=== PATIENT | female | born 1995 | race American Indian/Alaskan Native ===

== ENCOUNTER 2017-10-18 22:04 | Inpatient (IN) | payer MEDICAID ==
[2017-10-18] MEDS ORDERED: LACTATED RINGERS 500 ML IV ONE (22:05)
[2017-10-18 23:09] LABS: Bilirubin,Urine NEG (Negative); Blood,Urine SM (Negative); Color,Urine Yellow (Yellow); Mucus,Urine FEW /HPF; Nitrite,Urine NEG (Negative); Protein,Urine <15 mg/dL mg/dL (Negative); Urobilinogen,Urine < 2.0 mg/dL (<2.0)
[2017-10-18] MEDS ORDERED: ANCEF/STERILE WATER 2 GM/20 ML 2 GM/20 ML SYRINGE IV ONE (23:28)
[2017-10-18] MEDS ORDERED: MAGNESIUM SULFATE 40GM/1000ML 40 GM/1,000 ML BAG IV SCH (23:45)
[2017-10-18] MEDS ORDERED: MAGNESIUM SULFATE 4GM/100ML 4 GM/100 ML BAG IV ONE (23:56)
[2017-10-19] MEDS ORDERED: CELESTONE SOLUSPAN IM ONE (00:04)
[2017-10-19] MEDS: CELESTONE SOLUSPAN IM SCH (00:10)
[2017-10-19] MEDS ORDERED: PITOCin/NS 20 UNIT/1000ML DRIP 20,000 MILLIUNITS/1,000 ML BAG IV ONE (00:32)
[2017-10-19 00:40] LABS: Hematocrit 34.7 % (30.3-42.9); Hemoglobin 11.7 gm/dl (10.1-14.3); Mean Corpuscular HGB Conc 34 % (30-34); Mean Corpuscular Hemoglobin 30 pg (28-32); Mean Corpuscular Volume 88 fl (79-97); Platelet Count 283 K/mm3 (140-440); Red Blood Count 3.96 M/mm3 (3.65-5.03)
[2017-10-19] MEDS ORDERED: PITOCin/NS 20 UNIT/1000ML DRIP 20 UNITS/1,000 ML BAG IV SCH (01:00)
[2017-10-19 01:03] LABS: Hepatitis C Virus Antibody Non-Reactive (NonReactive)
--- NOTE | 2017-10-19 01:04 | History and Physical Report ---
History of Present Illness Date of examination: 10/19/17 Date of admission: 10/18/17 23:54 Chief complaint: contractions History of present illness: 22y/o @ 32+3 weeks presents with pelvic pain and contractions. She stated that she was experiencing pelvic pressure. Labs revealed evidence of a urinary tract infection. The patient receives care @ [facility] (Formerly [facility]). Prenatals are not available for review. The patient was evaluated in triage and found to have a cervical exam of 4cm. GBS is unknown Past History Past Medical History: no pertinent history Past Surgical History: no surgical history Social history: single - Obstetrical History Expected Date of Delivery: 12/12/17 Actual Gestation: 32 Week(s) 2 Day(s) : 1 Para: 0 Hx # Term Pregnancies: 0 Number of Pregnancies: 0 Spontaneous Abortions: 0 Induced : 0 Number of Living Children: 0 Medications and Allergies Allergies Allergy/AdvReac Type Severity Reaction Status Date / Time clindamycin Allergy Rash Verified 12/23/14 01:55 Home Medications Medication Instructions Recorded Confirmed Last Taken Type Ibuprofen [Motrin] 600 mg PO Q8H PRN #30 tablet 12/23/14 Unknown Rx methOCARBAMOL [Robaxin] 500 mg PO BID #10 tab 12/23/14 Unknown Rx traMADol [Ultram] 50 mg PO Q6HR PRN #14 tablet 12/23/14 Unknown Rx Active Meds: Active Medications Betamethasone Acet/Betameth SodPhos (Celestone Soluspan) 12 mg IM Q24H JAKOB Stop: 10/20/17 00:01 Lactated Ringer's (Lactated Ringers) 1,000 mls @ 125 mls/hr IV DIRECT JAKOB Magnesium Sulfate 40 gm/ (Sodium Chloride) 1,080 mls @ 54 mls/hr IV DIRECT JAKOB PRN Reason: 2 GM/HR Oxytocin/Sodium Chloride (Pitocin/Ns 20 Unit/1000ml Drip) 20 units in 1,000 mls @ 0 mls/hr IV DIRECT JAKOB PRN Reason: As Directed Review of Systems All systems: negative Genitourinary: contractions - Vital Signs Vital signs: Vital Signs Temp Pulse Resp BP 98.2 F 105 H 20 149/96 10/18/17 22:24 10/18/17 22:24 10/18/17 22:24 10/18/17 22:24 Temp Pulse Resp BP Pulse Ox 98.2 F 122 H 20 141/95 99 10/18/17 22:24 10/19/17 01:02 10/18/17 22:24 10/18/17 23:24 10/19/17 01:02 - Physical Exam Breasts: Positive: deferred Cardiovascular: Regular rate Lungs: Positive: Clear to auscultation Abdomen: Positive: normal appearance Results Result Diagrams: 10/18/17 23:50 Abnormal lab results 10/18/17 Range/Units 22:10 Ur Specific [place] 1.002 L (1.003-1.030) Urine WBC (Auto) 24.0 H (0.0-6.0) /HPF All other labs normal. Assessment and Plan - Patient Problems (1) labor Current Visit: Yes Status: Acute Plan to address problem: admit to L&D
[2017-10-19] MEDS ORDERED: SUBLIMAZE IV ONE ×2 (01:20→04:50)
--- NOTE | 2017-10-19 01:33 | Ultrasound Report ---
FINAL REPORT EXAM: US OB FOLLOW UP HISTORY: estimated weight TECHNIQUE: A limited OB sonogram was obtained for evaluation of weight. FINDINGS: The head is deep in the pelvis and bulging into the vagina. The estimated sonographic age is 30 weeks 6 days based on criteria. The heart is 143 BPM. The estimated weight is 1850 grams. A survey of organs was not obtained. IMPRESSION: Cephalic presentation with the head of the fetus deep in the cervix and vaginal canal. Estimated sonographic age of 30 weeks 6 days. Estimated weight is 1850 grams heart is 143 BPM.
[2017-10-19] MEDS: LACTATED RINGERS 1,000 ML IV SCH ×2 (01:44→14:57)
[2017-10-19 02:07] LABS: Rubella IgG Antibody Immune (Immune)
[2017-10-19] MEDS ORDERED: STADOL ONE (04:55)
[2017-10-19] MEDS ORDERED: STADOL IV PRN (05:07)
[2017-10-19 05:18] LABS: Amphetamine Screen,Urine PRESUMPTIVE NEGATIVE; Benzodiazepines Screen,Urine PRESUMPTIVE NEGATIVE; Cannabinoid Screen,Urine PRESUMPTIVE NEGATIVE; Cocaine Screen,Urine PRESUMPTIVE NEGATIVE; Methadone Screen,Urine PRESUMPTIVE NEGATIVE; Opiate Screen,Urine PRESUMPTIVE NEGATIVE
[2017-10-19] MEDS: POLYCILLIN/NS 2 GM/100 ML 2 GM/100 ML BAG IV SCH ×4 (05:43→20:28)
[2017-10-19 05:47] LABS: Band Neutrophils # (Manual) 2.5 K/mm3; Basophils % (Manual) 0 % (0.0-1.8); Eosinophils % (Manual) 0 % (0.0-4.3); Total Cells Counted 100
[2017-10-19 05:48] LABS: Anisocytosis 1+; Hypochromasia 1+; Large Platelets Few
[2017-10-19] MEDS: MAGNESIUM SULFATE 40 GM in NACL 0.9% 1000 ML 1,000 ML IV SCH (06:44)
--- NOTE | 2017-10-19 07:03 | Progress Note ---
Assessment and Plan - Patient Problems (1) labor Current Visit: Yes Status: Acute (2) premature rupture of membranes Current Visit: Yes Status: Acute Plan to address problem: expectant management will continue magnesium until 2nd steroid dose is received Subjective - Subjective Date of service: 10/19/17 Principal diagnosis: labor Interval history: 22y/o @ 32+3 weeks in labor. Notified by nursing that the patient had progressed to complete dilation. Prepared patient for a vaginal delivery and upon re-examination, the patient was found to be 4 cm. She was experiencing small amounts of fluid from the vagina. The patient is presumed to be ruptured in vertex presentation. The magnesium was resumed upon realization the patient was not delivering at that moment. The findings were discussed with patient and her mother. Will attempt to administer the 2nd steroid dose. Patient reports: loss of fluid, movement normal, contractions Objective - Vital Signs Vital Signs: Vital Signs - 12hr 10/18/17 10/18/17 10/18/17 22:24 22:25 22:30 Temperature 98.2 F Pulse Rate 105 H 105 H 95 H Respiratory 20 Rate Blood Pressure 149/96 O2 Sat by Pulse 98 98 Oximetry 10/18/17 10/18/17 10/18/17 22:35 22:36 22:40 Temperature Pulse Rate 103 H 100 H 107 H Respiratory Rate Blood Pressure 138/100 142/97 O2 Sat by Pulse 98 98 Oximetry 10/18/17 10/18/17 10/18/17 22:45 22:54 23:18 Temperature Pulse Rate 110 H 96 H 96 H Respiratory Rate Blood Pressure 144/98 145/95 O2 Sat by Pulse 99 Oximetry 10/18/17 10/19/17 10/19/17 23:24 00:04 00:09 Temperature Pulse Rate 91 H 90 98 H Respiratory Rate Blood Pressure 141/95 O2 Sat by Pulse 99 99 Oximetry 10/19/17 10/19/17 10/19/17 00:11 00:14 00:19 Temperature Pulse Rate 100 H 100 H 117 H Respiratory Rate Blood Pressure O2 Sat by Pulse 84 97 99 Oximetry 10/19/17 10/19/17 10/19/17 00:37 00:42 00:47 Temperature Pulse Rate 103 H 101 H 115 H Respiratory Rate Blood Pressure O2 Sat by Pulse 98 98 98 Oximetry 10/19/17 10/19/17 10/19/17 00:52 00:57 01:02 Temperature Pulse Rate 131 H 126 H 122 H Respiratory Rate Blood Pressure O2 Sat by Pulse 99 98 99 Oximetry 10/19/17 10/19/17 10/19/17 01:07 01:12 01:17 Temperature Pulse Rate 128 H 112 H 131 H Respiratory Rate Blood Pressure O2 Sat by Pulse 98 96 97 Oximetry 10/19/17 10/19/17 10/19/17 01:22 01:27 01:32 Temperature Pulse Rate 134 H 121 H 135 H Respiratory Rate Blood Pressure O2 Sat by Pulse 95 98 96 Oximetry 10/19/17 10/19/17 10/19/17 01:37 02:07 02:35 Temperature Pulse Rate 108 H 108 H Respiratory 18 18 Rate Blood Pressure O2 Sat by Pulse 94 97 Oximetry 10/19/17 10/19/17 10/19/17 02:40 02:45 02:50 Temperature Pulse Rate 115 H 107 H 108 H Respiratory Rate Blood Pressure O2 Sat by Pulse 97 96 98 Oximetry 10/19/17 10/19/17 10/19/17 02:55 03:00 05:06 Temperature Pulse Rate 128 H 102 H Respiratory 18 Rate Blood Pressure O2 Sat by Pulse 97 97 Oximetry 10/19/17 10/19/17 10/19/17 05:08 05:13 05:15 Temperature Pulse Rate 87 76 80 Respiratory Rate Blood Pressure O2 Sat by Pulse 94 95 94 Oximetry 10/19/17 10/19/17 10/19/17 05:18 05:21 05:23 Temperature Pulse Rate 90 80 74 Respiratory Rate Blood Pressure O2 Sat by Pulse 95 94 94 Oximetry 10/19/17 10/19/17 10/19/17 05:28 05:30 05:33 Temperature Pulse Rate 93 H 91 H 75 Respiratory Rate Blood Pressure O2 Sat by Pulse 95 94 95 Oximetry 10/19/17 10/19/17 10/19/17 05:38 05:43 05:44 Temperature Pulse Rate 76 87 86 Respiratory Rate Blood Pressure O2 Sat by Pulse 96 95 94 Oximetry 10/19/17 10/19/17 10/19/17 05:46 05:47 05:48 Temperature 98.2 F Pulse Rate 79 79 Respiratory 18 Rate Blood Pressure 141/94 O2 Sat by Pulse 97 Oximetry 10/19/17 10/19/17 10/19/17 05:53 05:58 06:03 Temperature Pulse Rate 78 76 86 Respiratory Rate Blood Pressure O2 Sat by Pulse 97 97 96 Oximetry 10/19/17 10/19/17 10/19/17 06:08 06:13 06:18 Temperature Pulse Rate 78 77 92 H Respiratory Rate Blood Pressure O2 Sat by Pulse 97 97 96 Oximetry 10/19/17 10/19/17 10/19/17 06:23 06:28 06:32 Temperature Pulse Rate 73 74 76 Respiratory Rate Blood Pressure O2 Sat by Pulse 96 95 94 Oximetry 10/19/17 10/19/17 10/19/17 06:33 06:38 06:43 Temperature Pulse Rate 78 79 87 Respiratory Rate Blood Pressure O2 Sat by Pulse 97 95 97 Oximetry 10/19/17 10/19/17 10/19/17 06:48 06:53 06:58 Temperature Pulse Rate 78 91 H 72 Respiratory Rate Blood Pressure O2 Sat by Pulse 96 96 96 Oximetry - Labs Labs: Abnormal Labs 10/18/17 10/18/17 22:10 23:50 WBC 21.1 H RDW 12.0 L Lymphocytes % (Manual) 12.0 L Seg Neutrophils # Man 14.8 H Monocytes # (Manual) 1.3 H Ur Specific [place] 1.002 L Urine WBC (Auto) 24.0 H Laboratory Results - last 24 hr 10/18/17 10/18/17 10/18/17 22:10 23:50 23:50 WBC 21.1 H RBC 3.96 Hgb 11.7 Hct 34.7 MCV 88 MCH 30 MCHC 34 RDW 12.0 L Plt Count 283 Add Manual Diff Complete Total Counted 100 Seg Neuts % (Manual) 70.0 Band Neutrophils % 12.0 Lymphocytes % (Manual) 12.0 L Reactive Lymphs % (Man) 0 Monocytes % (Manual) 6.0 Eosinophils % (Manual) 0 Basophils % (Manual) 0 Metamyelocytes % 0 Myelocytes % 0 Promyelocytes % 0 Blast Cells % 0 Nucleated RBC % Not Reportable Seg Neutrophils # Man 14.8 H Band Neutrophils # 2.5 Lymphocytes # (Manual) 2.5 Abs React Lymphs (Man) 0.0 Monocytes # (Manual) 1.3 H Eosinophils # (Manual) 0.0 Basophils # (Manual) 0.0 Metamyelocytes # 0.0 Myelocytes # 0.0 Promyelocytes # 0.0 Blast Cells # 0.0 WBC Morphology Not Reportable Hypersegmented Neuts Not Reportable Hyposegmented Neuts Not Reportable Hypogranular Neuts Not Reportable Smudge Cells Not Reportable Toxic Granulation Not Reportable Toxic Vacuolation Not Reportable Dohle Bodies Not Reportable Pelger-Huet Anomaly Not Reportable Valentina Rods Not Reportable Platelet Estimate Appears normal Clumped Platelets Not Reportable Plt Clumps, EDTA Not Reportable Large Platelets Few Giant Platelets Not Reportable Platelet Satelliting Not Reportable Plt Morphology Comment Not Reportable RBC Morphology Not Reportable Dimorphic RBCs Not Reportable Polychromasia Not Reportable Hypochromasia 1+ Poikilocytosis Not Reportable Anisocytosis 1+ Microcytosis Not Reportable Macrocytosis Not Reportable Spherocytes Not Reportable Pappenheimer Bodies Not Reportable Sickle Cells Not Reportable Target Cells Not Reportable Tear Drop Cells Not Reportable Ovalocytes Not Reportable Helmet Cells Not Reportable [place] Bodies Not Reportable [place] Rings Not Reportable Roel Cells Not Reportable Bite Cells Not Reportable Crenated Cell Not Reportable Elliptocytes Not Reportable Acanthocytes (Spur) Not Reportable Rouleaux Not Reportable Hemoglobin C Crystals Not Reportable Schistocytes Not Reportable Malaria parasites Not Reportable Vin Bodies Not Reportable Hem Pathologist Commnt No Urine Color Yellow Urine Turbidity Hazy Urine pH 7.0 Ur Specific [place] 1.002 L Urine Protein <15 mg/dl Urine Glucose (UA) Neg Urine Ketones Neg Urine Blood Sm Urine Nitrite Neg Urine Bilirubin Neg Urine Urobilinogen < 2.0 Ur Leukocyte Esterase Lg Urine WBC (Auto) 24.0 H Urine RBC (Auto) 3.0 U Epithel Cells (Auto) 5.0 Urine Mucus Few Urine Opiates Screen Urine Methadone Screen Ur Barbiturates Screen Ur Phencyclidine Scrn Ur Amphetamines Screen U Benzodiazepines Scrn Urine Cocaine Screen U Marijuana (THC) Screen Drugs of Abuse Note Hep Bs Antigen Hepatitis C Antibody Non-reactive HIV 1&2 Antibody Rapid Non react HIV P24 Antigen Non react Rubella IgG Antibody Immune Blood Type Antibody Screen 10/18/17 10/18/17 10/19/17 23:50 23:50 04:50 WBC RBC Hgb Hct MCV MCH MCHC RDW Plt Count Add Manual Diff Total Counted Seg Neuts % (Manual) Band Neutrophils % Lymphocytes % (Manual) Reactive Lymphs % (Man) Monocytes % (Manual) Eosinophils % (Manual) Basophils % (Manual) Metamyelocytes % Myelocytes % Promyelocytes % Blast Cells % Nucleated RBC % Seg Neutrophils # Man Band Neutrophils # Lymphocytes # (Manual) Abs React Lymphs (Man) Monocytes # (Manual) Eosinophils # (Manual) Basophils # (Manual) Metamyelocytes # Myelocytes # Promyelocytes # Blast Cells # WBC Morphology Hypersegmented Neuts Hyposegmented Neuts Hypogranular Neuts Smudge Cells Toxic Granulation Toxic Vacuolation Dohle Bodies Pelger-Huet Anomaly Valentina Rods Platelet Estimate Clumped Platelets Plt Clumps, EDTA Large Platelets Giant Platelets Platelet Satelliting Plt Morphology Comment RBC Morphology Dimorphic RBCs Polychromasia Hypochromasia Poikilocytosis Anisocytosis Microcytosis Macrocytosis Spherocytes Pappenheimer Bodies Sickle Cells Target Cells Tear Drop Cells Ovalocytes Helmet Cells [place] Bodies [place] Rings Roel Cells Bite Cells Crenated Cell Elliptocytes Acanthocytes (Spur) Rouleaux Hemoglobin C Crystals Schistocytes Malaria parasites Vin Bodies Hem Pathologist Commnt Urine Color Urine Turbidity Urine pH Ur Specific [place] Urine Protein Urine Glucose (UA) Urine Ketones Urine Blood Urine Nitrite Urine Bilirubin Urine Urobilinogen Ur Leukocyte Esterase Urine WBC (Auto) Urine RBC (Auto) U Epithel Cells (Auto) Urine Mucus Urine Opiates Screen Presumptive negative Urine Methadone Screen Presumptive negative Ur Barbiturates Screen Presumptive negative Ur Phencyclidine Scrn Presumptive negative Ur Amphetamines Screen Presumptive negative U Benzodiazepines Scrn Presumptive negative Urine Cocaine Screen Presumptive negative U Marijuana (THC) Screen Presumptive negative Drugs of Abuse Note Disclamer Hep Bs Antigen Non-reactive Hepatitis C Antibody HIV 1&2 Antibody Rapid HIV P24 Antigen Rubella IgG Antibody Blood Type A POSITIVE Antibody Screen Negative
--- NOTE | 2017-10-19 11:40 | Consultation ---
History of Present Illness Consult date: 10/19/17 Requesting physician: LAURO ARIAS Reason for consult: prematurity History of present illness: I met with mother and spoke with her nurse on the OB team. Mother is presenting with labor. 1st dose of betamethasone given at 0010 today and currently on [id number]. I explained to mother the need for NICU admission at 32 weeks. We discussed the possible need for respiratory support, umbilical lines if necessary, advancing nutrition towards full oral feeds, temperature regulation and the possible need for antibiotics as well as complications that may occur during NICU stay. I encouraged mother to start pumping breast milk soon after delivery. Mother expressed understanding of all the information provided and I encouraged her to contact the NICU with any further questions. Documentation - Maternal Info Maternal Blood Type: A (+) positive HbsAg: Negative HIV: Negative Group Beta Strep: Unknown Rubella: Immune - information: Height 5 ft Medications and Allergies Allergies Allergy/AdvReac Type Severity Reaction Status Date / Time clindamycin Allergy Rash Verified 12/23/14 01:55 Home Medications Medication Instructions Recorded Confirmed Last Taken Type Ibuprofen [Motrin] 600 mg PO Q8H PRN #30 tablet 12/23/14 10/19/17 Unknown Rx methOCARBAMOL [Robaxin] 500 mg PO BID #10 tab 12/23/14 10/19/17 Unknown Rx traMADol [Ultram] 50 mg PO Q6HR PRN #14 tablet 12/23/14 10/19/17 Unknown Rx Acetaminophen [Tylenol Extra 1,000 mg PO PRN 10/19/17 10/19/17 10/17/17 21:00 History Strength] Ferrous Sulfate [Feosol 325 MG tab] 325 mg PO BID 10/19/17 10/19/17 Unknown History 21/Iron Fu/Folic Acid 1 tab PO DAILY 10/19/17 10/19/17 Unknown History [ Complete Caplet] Promethazine [Phenergan TAB] 25 mg PO Q6HR PRN 10/19/17 10/19/17 10/17/17 23:00 History Active Meds: Active Medications Amoxicillin (Trimox) 250 mg PO Q8HR JAKOB PRN Reason: Protocol Stop: 10/26/17 05:59 Betamethasone Acet/Betameth SodPhos (Celestone Soluspan) 12 mg IM Q24H JAKOB Stop: 10/20/17 00:01 Last Admin: 10/19/17 00:10 Dose: 12 mg Butorphanol Tartrate (Stadol) 2 mg IV Q2H PRN PRN Reason: Labor Pain Erythromycin (Abdi-Tab) 250 mg PO Q8HR JAKOB PRN Reason: Protocol Stop: 10/26/17 05:59 Lactated Ringer's (Lactated Ringers) 1,000 mls @ 125 mls/hr IV DIRECT JAKOB Last Admin: 10/19/17 01:44 Dose: 125 mls/hr Magnesium Sulfate 40 gm/ (Sodium Chloride) 1,080 mls @ 54 mls/hr IV DIRECT JAKOB PRN Reason: 2 GM/HR Last Admin: 10/19/17 06:44 Dose: 2 gm/hr, 54 mls/hr Ampicillin Sodium (Polycillin/Ns 2 Gm/100 Ml) 2 gm in 100 mls @ 100 mls/hr IV Q6H JAKOB PRN Reason: Protocol Stop: 10/20/17 21:59 Last Admin: 10/19/17 09:17 Dose: 100 mls/hr Exam Vital Signs Temp Pulse Resp BP 98.2 F 105 H 20 149/96 10/18/17 22:24 10/18/17 22:24 10/18/17 22:24 10/18/17 22:24 Temp Pulse Resp BP Pulse Ox 97.6 F 87 18 147/88 99 10/19/17 09:20 10/19/17 09:28 10/19/17 09:20 10/19/17 09:25 10/19/17 09:28 Results - Laboratory Findings 10/18/17 23:50 Abnormal lab results 10/18/17 10/18/17 Range/Units 22:10 23:50 WBC 21.1 H (4.5-11.0) K/mm3 RDW 12.0 L (13.2-15.2) % Lymphocytes % (Manual) 12.0 L (13.4-35.0) % Seg Neutrophils # Man 14.8 H (1.8-7.7) K/mm3 Monocytes # (Manual) 1.3 H (0.0-0.8) K/mm3 Ur Specific [place] 1.002 L (1.003-1.030) Urine WBC (Auto) 24.0 H (0.0-6.0) /HPF Assessment and Plan Agree with steroids Will attend delivery Call NICU with questions
--- NOTE | 2017-10-19 14:06 | Ultrasound Report ---
ULTRASOUND OB LIMITED History: well being Technique: Transabdominal ultrasound with Doppler interrogation. Gestation: Single Position: Cephalic Amniotic Fluid: Increased SHANNA = 25.2 cm Heart Rate: 120 BPM
--- NOTE | 2017-10-19 14:06 | Ultrasound Report ---
ULTRASOUND BIOPHYSICAL PROFILE: History: well being Technique: Transabdominal ultrasound with Doppler interrogation. 2 - breathing movements 2 - movements 2 - posture and tone 2 - Qualitative amniotic fluid volume 8 - TOTAL SCORE OF POSSIBLE 8 Heart Rate (bpm) 120
[2017-10-19] MEDS ORDERED: DEEP SEA NS PRN (17:19)
[2017-10-19] MEDS ORDERED: ZOFRAN IV PRN (20:13)
[2017-10-19] MEDS ORDERED: ZOFRAN ONE (20:15)
[2017-10-19] MEDS ORDERED: CALCIUM GLUCONATE 2,000 MG in NACL 0.9% 100 ML IV ONE (21:49)
[2017-10-20] MEDS: CELESTONE SOLUSPAN IM SCH (00:32)
[2017-10-20] MEDS: POLYCILLIN/NS 2 GM/100 ML 2 GM/100 ML BAG IV SCH ×4 (05:44→23:28)
[2017-10-20] MEDS: LACTATED RINGERS 1,000 ML IV SCH ×2 (05:45→22:51)
--- NOTE | 2017-10-20 09:46 | Ultrasound Report ---
History: well being. BIOPHYSICAL PROFILE: 0 - breathing movements 2 - movements 2 - posture and tone 2 - Qualitative amniotic fluid volume 8 - TOTAL SCORE OF POSSIBLE 8 Heart Rate (bpm) 137 Gestation: Single Position: Cephalic Amniotic Fluid: SHANNA = 24.6 cm Heart Rate: 134 BPM Cervical length: cm (Normal > 3 cm)
--- NOTE | 2017-10-20 11:24 | Progress Note ---
Assessment and Plan A/P HD#3 32 weeks labor, advanced dilation on mag check mag levels and creatinine s/p [id number] continuous monitoring await [facility] recommendations Subjective - Subjective Date of service: 10/20/17 Principal diagnosis: labor Patient reports: new complaints, loss of fluid, movement normal, contractions (occasional) Objective - Vital Signs Vital Signs: Vital Signs - 12hr 10/20/17 10/20/17 10/20/17 00:01 01:01 02:01 Pulse Rate 104 H 102 H 100 H Blood Pressure 121/78 119/76 124/73 O2 Sat by Pulse Oximetry 10/20/17 10/20/17 10/20/17 03:01 04:02 05:02 Pulse Rate 91 H 92 H 89 Blood Pressure 127/82 128/79 140/88 O2 Sat by Pulse Oximetry 10/20/17 10/20/17 10/20/17 06:01 07:01 08:02 Pulse Rate 81 86 104 H Blood Pressure 126/79 140/79 156/98 O2 Sat by Pulse Oximetry 10/20/17 10/20/17 10/20/17 08:25 09:33 09:38 Pulse Rate 88 79 76 Blood Pressure 121/77 O2 Sat by Pulse 100 99 Oximetry 10/20/17 10/20/17 10/20/17 09:43 09:48 09:53 Pulse Rate 81 75 73 Blood Pressure O2 Sat by Pulse 99 99 99 Oximetry 10/20/17 10/20/17 10/20/17 09:58 11:07 11:08 Pulse Rate 104 H 89 89 Blood Pressure O2 Sat by Pulse 99 94 95 Oximetry 10/20/17 10/20/17 11:13 11:18 Pulse Rate 78 77 Blood Pressure O2 Sat by Pulse 100 100 Oximetry - Exam Breasts: normal Cardiovascular: Regular rate, Normal S1 Abdomen: Present: normal appearance, soft, normal bowel sounds Uterus: Present: normal FHR: category 1 Uterine Contraction Pattern: Irregular Uterine Tone Measurement Phase: Contraction - Labs Labs: Abnormal Labs 10/18/17 10/18/17 10/19/17 22:10 23:50 20:40 WBC 21.1 H RDW 12.0 L Lymphocytes % (Manual) 12.0 L Seg Neutrophils # Man 14.8 H Monocytes # (Manual) 1.3 H Magnesium 10.10 H Ur Specific [place] 1.002 L Urine WBC (Auto) 24.0 H 10/20/17 10/20/17 00:09 10:03 WBC RDW Lymphocytes % (Manual) Seg Neutrophils # Man Monocytes # (Manual) Magnesium 7.40 H 3.80 H Ur Specific [place] Urine WBC (Auto) Laboratory Results - last 24 hr 10/18/17 10/19/17 10/20/17 23:50 20:40 00:09 Creatinine Estimated GFR Magnesium 10.10 H 7.40 H RPR Nonreactive 10/20/17 10/20/17 10:03 10:10 Creatinine 1.0 Estimated GFR > 60 Magnesium 3.80 H RPR
[2017-10-20] MEDS ORDERED: MAGNESIUM SULFATE 4GM/100ML 0 GM/0 ML BAG IV ONE (16:33)
[2017-10-20] MEDS ORDERED: MAGNESIUM SULFATE 40GM/1000ML 40 GM/1,000 ML BAG IV SCH (17:00)
[2017-10-20] MEDS: MAGNESIUM SULFATE 40 GM in NACL 0.9% 1000 ML 1,000 ML IV SCH (18:16)
[2017-10-21] MEDS ORDERED: PROCARDIA*For Tocolysis only PO SCH (05:00)
[2017-10-21] MEDS ORDERED: TRIMOX PO SCH (06:00)
[2017-10-21] MEDS ORDERED: ERY-TAB PO SCH (06:00)
[2017-10-21] MEDS: PROCARDIA*For Tocolysis only PO SCH ×2 (09:32→16:21)
[2017-10-21] MEDS ORDERED: XYLOCAINE 2% INFILTRATI ONE (17:18)
[2017-10-21] MEDS: LACTATED RINGERS 1,000 ML IV SCH ×2 (18:42→21:08)
[2017-10-21] MEDS ORDERED: AMBIEN PO PRN (19:37)
[2017-10-21] MEDS ORDERED: STADOL IV PRN (19:37)
[2017-10-21] MEDS ORDERED: TYLENOL PO PRN ×2 (19:37→21:59)
--- NOTE | 2017-10-21 20:41 | Progress Note ---
Assessment and Plan A/P HD#4 32+ weeks labor, advanced dilation s/p mag for 48hrs MFM consult appreciated creatinine elevated ( 24 hr urine collection ongoing-complete tomorrow) s/p [id number] continuous monitoring on procardia for contractions Subjective - Subjective Date of service: 10/21/17 Principal diagnosis: labor Patient reports: new complaints, movement normal, no loss of fluid, no vaginal bleeding, no contractions (occasional) Objective - Vital Signs Vital Signs: Vital Signs - 12hr 10/21/17 10/21/17 10/21/17 09:39 09:40 09:45 Temperature Pulse Rate 97 H 94 H 99 H Respiratory Rate Blood Pressure Blood Pressure [Left] O2 Sat by Pulse 92 93 92 Oximetry 10/21/17 10/21/17 10/21/17 09:48 09:50 09:55 Temperature Pulse Rate 89 107 H 92 H Respiratory Rate Blood Pressure Blood Pressure [Left] O2 Sat by Pulse 93 93 92 Oximetry 10/21/17 10/21/17 10/21/17 10:00 10:05 10:10 Temperature Pulse Rate 85 83 102 H Respiratory Rate Blood Pressure Blood Pressure [Left] O2 Sat by Pulse 93 93 92 Oximetry 10/21/17 10/21/17 10/21/17 10:15 10:20 10:25 Temperature Pulse Rate 105 H 100 H 98 H Respiratory Rate Blood Pressure Blood Pressure [Left] O2 Sat by Pulse 92 92 93 Oximetry 10/21/17 10/21/17 10/21/17 10:30 10:35 10:40 Temperature Pulse Rate 101 H 99 H 103 H Respiratory Rate Blood Pressure Blood Pressure [Left] O2 Sat by Pulse 91 92 92 Oximetry 10/21/17 10/21/17 10/21/17 10:45 10:50 10:54 Temperature Pulse Rate 94 H 98 H 118 H Respiratory Rate Blood Pressure Blood Pressure [Left] O2 Sat by Pulse 93 92 93 Oximetry 10/21/17 10/21/17 10/21/17 10:55 11:00 11:05 Temperature Pulse Rate 117 H 99 H 100 H Respiratory Rate Blood Pressure Blood Pressure [Left] O2 Sat by Pulse 94 90 90 Oximetry 10/21/17 10/21/17 10/21/17 11:10 11:15 11:19 Temperature Pulse Rate 99 H 109 H Respiratory Rate Blood Pressure Blood Pressure [Left] O2 Sat by Pulse 91 94 92 Oximetry 10/21/17 10/21/17 10/21/17 11:20 11:25 11:26 Temperature Pulse Rate 109 H 103 H 110 H Respiratory Rate Blood Pressure Blood Pressure [Left] O2 Sat by Pulse 93 91 94 Oximetry 10/21/17 10/21/17 10/21/17 11:30 11:32 11:35 Temperature Pulse Rate 105 H 94 H Respiratory 18 Rate Blood Pressure Blood Pressure [Left] O2 Sat by Pulse 92 94 Oximetry 10/21/17 10/21/17 10/21/17 11:36 11:40 11:43 Temperature Pulse Rate 102 H 97 H Respiratory Rate Blood Pressure Blood Pressure [Left] O2 Sat by Pulse 94 92 92 Oximetry 10/21/17 10/21/17 10/21/17 11:45 11:50 11:53 Temperature Pulse Rate 98 H 90 86 Respiratory Rate Blood Pressure Blood Pressure [Left] O2 Sat by Pulse 93 89 93 Oximetry 10/21/17 10/21/17 10/21/17 11:55 12:00 12:05 Temperature Pulse Rate 93 H 88 84 Respiratory Rate Blood Pressure Blood Pressure [Left] O2 Sat by Pulse 92 94 94 Oximetry 10/21/17 10/21/17 10/21/17 12:09 12:10 12:11 Temperature Pulse Rate 104 H 95 H 83 Respiratory Rate Blood Pressure 122/72 Blood Pressure [Left] O2 Sat by Pulse 94 94 Oximetry 10/21/17 10/21/17 10/21/17 12:15 12:16 12:20 Temperature Pulse Rate 82 80 93 H Respiratory Rate Blood Pressure Blood Pressure [Left] O2 Sat by Pulse 94 94 95 Oximetry 10/21/17 10/21/17 10/21/17 12:21 12:25 12:29 Temperature Pulse Rate 79 83 76 Respiratory Rate Blood Pressure Blood Pressure [Left] O2 Sat by Pulse 94 95 94 Oximetry 10/21/17 10/21/17 10/21/17 12:30 12:33 12:35 Temperature 97.8 F Pulse Rate 75 72 78 Respiratory 16 Rate Blood Pressure Blood Pressure 112/63 [Left] O2 Sat by Pulse 94 94 Oximetry 10/21/17 10/21/17 10/21/17 12:40 12:41 12:45 Temperature Pulse Rate 80 77 74 Respiratory Rate Blood Pressure Blood Pressure [Left] O2 Sat by Pulse 95 94 95 Oximetry 10/21/17 10/21/17 10/21/17 12:50 12:52 12:55 Temperature Pulse Rate 83 91 H 76 Respiratory Rate Blood Pressure Blood Pressure [Left] O2 Sat by Pulse 96 94 95 Oximetry 10/21/17 10/21/17 10/21/17 12:58 13:00 13:01 Temperature Pulse Rate 82 69 79 Respiratory Rate Blood Pressure 134/93 Blood Pressure [Left] O2 Sat by Pulse 94 94 Oximetry 10/21/17 10/21/17 10/21/17 13:04 13:05 13:10 Temperature Pulse Rate 86 83 69 Respiratory Rate Blood Pressure Blood Pressure [Left] O2 Sat by Pulse 94 94 94 Oximetry 10/21/17 10/21/17 10/21/17 13:15 13:20 13:24 Temperature Pulse Rate 76 69 Respiratory Rate Blood Pressure Blood Pressure [Left] O2 Sat by Pulse 94 94 94 Oximetry 10/21/17 10/21/17 10/21/17 13:25 13:29 13:30 Temperature Pulse Rate 77 71 78 Respiratory Rate Blood Pressure Blood Pressure [Left] O2 Sat by Pulse 94 94 95 Oximetry 10/21/17 10/21/17 10/21/17 13:35 13:36 13:40 Temperature Pulse Rate 76 72 85 Respiratory Rate Blood Pressure Blood Pressure [Left] O2 Sat by Pulse 96 94 95 Oximetry 10/21/17 10/21/17 10/21/17 13:43 13:45 13:50 Temperature Pulse Rate 80 81 71 Respiratory Rate Blood Pressure Blood Pressure [Left] O2 Sat by Pulse 93 93 96 Oximetry 10/21/17 10/21/17 10/21/17 13:55 14:00 14:02 Temperature Pulse Rate 70 72 83 Respiratory Rate Blood Pressure 144/64 Blood Pressure [Left] O2 Sat by Pulse 96 95 93 Oximetry 10/21/17 10/21/17 10/21/17 14:05 14:07 14:10 Temperature Pulse Rate 82 78 68 Respiratory Rate Blood Pressure Blood Pressure [Left] O2 Sat by Pulse 94 93 95 Oximetry 10/21/17 10/21/17 10/21/17 14:15 14:20 14:25 Temperature Pulse Rate 82 76 68 Respiratory Rate Blood Pressure Blood Pressure [Left] O2 Sat by Pulse 94 99 99 Oximetry 10/21/17 10/21/17 10/21/17 14:30 14:35 14:40 Temperature Pulse Rate 83 76 81 Respiratory Rate Blood Pressure Blood Pressure [Left] O2 Sat by Pulse 99 97 99 Oximetry 10/21/17 10/21/17 10/21/17 14:45 14:50 14:55 Temperature Pulse Rate 80 78 73 Respiratory Rate Blood Pressure Blood Pressure [Left] O2 Sat by Pulse 98 99 100 Oximetry 10/21/17 10/21/17 10/21/17 15:00 15:01 15:05 Temperature Pulse Rate 70 75 84 Respiratory Rate Blood Pressure 125/78 Blood Pressure [Left] O2 Sat by Pulse 97 97 Oximetry 10/21/17 10/21/17 10/21/17 15:10 15:15 15:20 Temperature Pulse Rate 86 87 83 Respiratory Rate Blood Pressure Blood Pressure [Left] O2 Sat by Pulse 98 97 98 Oximetry 10/21/17 10/21/17 10/21/17 15:25 15:30 15:35 Temperature Pulse Rate 89 71 93 H Respiratory Rate Blood Pressure Blood Pressure [Left] O2 Sat by Pulse 98 98 97 Oximetry 10/21/17 10/21/17 10/21/17 15:40 15:45 15:50 Temperature Pulse Rate 71 73 93 H Respiratory Rate Blood Pressure Blood Pressure [Left] O2 Sat by Pulse 97 97 98 Oximetry 10/21/17 10/21/17 10/21/17 15:55 16:00 16:03 Temperature Pulse Rate 96 H 92 H 87 Respiratory Rate Blood Pressure 131/79 Blood Pressure [Left] O2 Sat by Pulse 97 96 Oximetry 10/21/17 10/21/17 10/21/17 16:05 16:10 16:15 Temperature Pulse Rate 89 91 H 78 Respiratory Rate Blood Pressure Blood Pressure [Left] O2 Sat by Pulse 97 97 96 Oximetry 10/21/17 10/21/17 10/21/17 16:20 16:25 16:30 Temperature Pulse Rate 75 89 91 H Respiratory Rate Blood Pressure Blood Pressure [Left] O2 Sat by Pulse 96 97 100 Oximetry 10/21/17 10/21/17 10/21/17 16:35 16:40 16:45 Temperature Pulse Rate 77 90 108 H Respiratory Rate Blood Pressure Blood Pressure [Left] O2 Sat by Pulse 100 99 97 Oximetry 02/18/18 02/18/18 02/18/18 16:50 16:55 17:00 Temperature Pulse Rate 115 H 112 H 115 H Respiratory Rate Blood Pressure Blood Pressure [Left] O2 Sat by Pulse 97 97 97 Oximetry 10/21/17 10/21/17 10/21/17 17:02 17:05 17:10 Temperature Pulse Rate 110 H 107 H 110 H Respiratory Rate Blood Pressure 87/53 Blood Pressure [Left] O2 Sat by Pulse 97 97 Oximetry 10/21/17 10/21/17 10/21/17 17:11 17:15 17:20 Temperature Pulse Rate 110 H 103 H 93 H Respiratory Rate Blood Pressure Blood Pressure [Left] O2 Sat by Pulse 94 94 96 Oximetry 10/21/17 10/21/17 10/21/17 17:25 17:30 17:35 Temperature Pulse Rate 96 H 89 114 H Respiratory Rate Blood Pressure Blood Pressure [Left] O2 Sat by Pulse 96 97 96 Oximetry 10/21/17 10/21/17 10/21/17 17:40 17:43 17:45 Temperature Pulse Rate 94 H 95 H 95 H Respiratory Rate Blood Pressure Blood Pressure [Left] O2 Sat by Pulse 96 94 95 Oximetry 10/21/17 10/21/17 10/21/17 17:50 17:55 17:58 Temperature Pulse Rate 88 89 85 Respiratory Rate Blood Pressure Blood Pressure [Left] O2 Sat by Pulse 95 96 94 Oximetry 10/21/17 10/21/17 10/21/17 18:00 18:01 18:05 Temperature Pulse Rate 87 83 86 Respiratory Rate Blood Pressure 108/64 Blood Pressure [Left] O2 Sat by Pulse 97 96 Oximetry 10/21/17 10/21/17 10/21/17 18:10 18:15 18:20 Temperature 97.4 F L Pulse Rate 79 82 96 H Respiratory 18 Rate Blood Pressure Blood Pressure 110/62 [Left] O2 Sat by Pulse 96 97 97 Oximetry 10/21/17 10/21/17 10/21/17 18:24 18:25 18:30 Temperature Pulse Rate 100 H 98 H 94 H Respiratory Rate Blood Pressure Blood Pressure [Left] O2 Sat by Pulse 93 94 93 Oximetry 10/21/17 10/21/17 10/21/17 18:35 18:40 18:45 Temperature Pulse Rate 85 78 80 Respiratory Rate Blood Pressure Blood Pressure [Left] O2 Sat by Pulse 100 100 99 Oximetry 10/21/17 10/21/1710/21/18 18:50 18:55 19:01 Temperature Pulse Rate 86 80 75 Respiratory Rate Blood Pressure 131/84 Blood Pressure [Left] O2 Sat by Pulse 98 97 Oximetry 10/21/17 19:15 Temperature 97.3 F L Pulse Rate Respiratory 16 Rate Blood Pressure Blood Pressure 131/84 [Left] O2 Sat by Pulse Oximetry - Exam Breasts: deferred Cardiovascular: Regular rate, Normal S1 Lungs: Clear to auscultation, Normal air movement Abdomen: Present: normal appearance, soft, normal bowel sounds. Absent: distention, tenderness, guarding Vulva: both: normal Uterus: Present: normal FHR: category 1 Uterine Contraction Pattern: Irregular Uterine Tone Measurement Phase: Resting Extremities: normal Deep Tendon Reflex Grade: Normal +2 - Labs Labs: Abnormal Labs 10/18/17 10/18/17 10/19/17 22:10 23:50 20:40 WBC 21.1 H RDW 12.0 L Lymphocytes % (Manual) 12.0 L Seg Neutrophils # Man 14.8 H Monocytes # (Manual) 1.3 H Magnesium 10.10 H Ur Specific [place] 1.002 L Urine WBC (Auto) 24.0 H 10/20/17 10/20/17 10/20/17 00:09 10:03 15:52 WBC RDW Lymphocytes % (Manual) Seg Neutrophils # Man Monocytes # (Manual) Magnesium 7.40 H 3.80 H 7.10 H Ur Specific [place] Urine WBC (Auto) 10/20/17 22:39 WBC RDW Lymphocytes % (Manual) Seg Neutrophils # Man Monocytes # (Manual) Magnesium 6.50 H Ur Specific [place] Urine WBC (Auto) Laboratory Results - last 24 hr 10/20/17 10/20/17 22:39 22:39 Creatinine 1.0 Estimated GFR > 60 Magnesium 6.50 H
[2017-10-21] MEDS ORDERED: POLYCILLIN/NS 2 GM/100 ML 2 GM/100 ML BAG IV ONE (21:00)
[2017-10-21] MEDS: POLYCILLIN/NS 2 GM/100 ML 2 GM/100 ML BAG IV SCH (21:07)
[2017-10-21] MEDS ORDERED: CYTOTEC ONE (21:47)
[2017-10-21] MEDS ORDERED: NORCO 5/325 PO PRN (21:59)
[2017-10-21] MEDS ORDERED: ZOFRAN IV PRN (21:59)
[2017-10-21] MEDS ORDERED: PHENERGAN PR PRN (21:59)
[2017-10-21] MEDS ORDERED: TORADOL IV PRN (21:59)
[2017-10-21] MEDS ORDERED: TUCKS PAD TP PRN (21:59)
[2017-10-21] MEDS ORDERED: LANSINOH TP PRN (21:59)
[2017-10-21] MEDS ORDERED: BENADRYL PO PRN (21:59)
[2017-10-21] MEDS ORDERED: PERCOCET 5/325 PO PRN (21:59)
[2017-10-21] MEDS ORDERED: PHENERGAN PO PRN (21:59)
[2017-10-21] MEDS ORDERED: DULCOLAX PR PRN (21:59)
[2017-10-21] MEDS ORDERED: MILK OF MAGNESIA PO PRN (21:59)
[2017-10-21] MEDS ORDERED: PITOCin/NS 20 UNIT/1000ML DRIP 20 UNITS/1,000 ML BAG IV SCH ×2 (22:00→23:00)
[2017-10-21] MEDS ORDERED: SODIUM CHLORIDE FLUSH SYRINGE 10 ML IV PRN (22:00)
--- NOTE | 2017-10-21 22:03 | Event Note ---
Date: 10/21/17 patient was noted to be srom clear fluid and /+2. will set up for imminent delivery
--- NOTE | 2017-10-21 22:10 | Procedure Note ---
OB Delivery Note - Delivery Date of Delivery: 10/21/17 Surgeon: SALIMA DONAHUE Estimated blood loss: other (600) - Vaginal Delivery position: OA Intrapartum events: labor-<37 weeks, hemorrhage Delivery induction: none Delivery augmentation: rupture of membranes Delivery monitor: external FHT, external uterine Route of delivery: Delivery placenta: spontaneous Delivery cord: 3 umbilical vessels Episiotomy: none Delivery laceration: none Anesthesia: none Delivery comments: Patient was noted to be c/c/+1 with bulging bag. AROM with clear fluid. She commenced to pushing a viable female infant in OA presentation at 2145. The shoulders delivered easily. The cord was cut and clamped and suction of nasoa and oropharynx. The placenta delivered intact with 3 vessel cord. Apgars 8 and 9. Peds staff in room and available for care of baby after delivery. Female infant 1726g. Survey of the patient perineum was without laceration. EBL 500 cc. cytotec 800 ug given with pitocin for PP hemorrhage. Patient tolerated procedure well and bonded with baby.
[2017-10-21] MEDS ORDERED: CYTOTEC PR ONE (22:14)
[2017-10-21] MEDS: COLACE PO SCH (23:54)
[2017-10-21] MEDS: SENOKOT S PO SCH (23:54)
[2017-10-21] MEDS: MOTRIN PO SCH (23:54)
[2017-10-22] MEDS: MOTRIN PO SCH ×3 (05:41→23:09)
--- NOTE | 2017-10-22 08:42 | Progress Note ---
Assessment and Plan - Patient Problems (1) labor Current Visit: Yes Status: Acute Plan to address problem: routine (2) premature rupture of membranes Current Visit: Yes Status: Acute Subjective - Subjective Date of service: 10/22/17 Principal diagnosis: labor Interval history: Patient without complaints. Tolerating regular diet. Pain well controlled. in NICU Patient reports: appetite normal, voiding normally, pain well controlled : in NICU Objective - Vital Signs Latest vital signs: Vital Signs Temp Pulse Resp BP BP Pulse Ox 10/22/17 05:41 18 10/22/17 05:23 99.1 F 89 18 126/87 97 10/22/17 00:16 99.8 F H 83 18 133/86 97 10/21/17 23:07 93 H 149/88 10/21/17 23:06 93 H 153/84 10/21/17 22:52 86 144/79 10/21/17 22:50 98.6 F 10/21/17 22:37 89 148/74 10/21/17 22:31 83 117/73 10/21/17 22:07 91 H 147/92 10/21/17 21:52 86 148/85 10/21/17 21:14 80 96 18 21:09 99 H 99 10/21/17 21:04 91 H 100 18 20:59 71 100 1818 20:54 82 94 18/18 20:53 89 94 18 20:49 85 96 1818 20:44 81 92 18 19:15 97.3 F L 16 131/84 18 19:01 75 131/84 18 18:55 80 97 1818 18:50 86 98 1818 18:45 80 99 1818 18:40 78 100 1818 18:35 85 100 1818 18:30 94 H 93 18 18:25 98 H 94 18 18:24 100 H 93 18 18:20 96 H 97 18 18:15 97.4 F L 82 18 110/62 97 10/21/17 18:10 79 96 10/21/17 18:05 86 96 02/18/18 18:01 83 108/64 02/18/18 18:00 87 97 02/18/18 17:58 85 94 02/18/18 17:55 89 96 02/18/18 17:50 88 95 02/18/18 17:45 95 H 95 02/18/18 17:43 95 H 94 02/18/18 17:40 94 H 96 02/18/18 17:35 114 H 96 02/18/18 17:30 89 97 02/18/18 17:25 96 H 96 02/18/18 17:20 93 H 96 02/18/18 17:15 103 H 94 02/18/18 17:11 110 H 94 02/18/18 17:10 110 H 97 02/18/18 17:05 107 H 97 02/18/18 17:02 110 H 87/53 02/18/18 17:00 115 H 97 02/18/18 16:55 112 H 97 02/18/18 16:50 115 H 97 02/18/18 16:45 108 H 97 02/18/18 16:40 90 99 02/18/18 16:35 77 100 02/18/18 16:30 91 H 100 02/18/18 16:25 89 97 02/18/18 16:20 75 96 02/18/18 16:15 78 96 02/18/18 16:10 91 H 97 02/18/18 16:05 89 97 02/18/18 16:03 87 131/79 02/18/18 16:00 92 H 96 02/18/18 15:55 96 H 97 02/18/18 15:50 93 H 98 02/18/18 15:45 73 97 02/18/18 15:40 71 97 02/18/18 15:35 93 H 97 02/18/18 15:30 71 98 02/18/18 15:25 89 98 02/18/18 15:20 83 98 02/18/18 15:15 87 97 02/18/18 15:10 86 98 02/18/18 15:05 84 97 02/18/18 15:01 75 125/78 02/18/18 15:00 70 97 02/18/18 14:55 73 100 02/18/18 14:50 78 99 02/18/18 14:45 80 98 02/18/18 14:40 81 99 02/18/18 14:35 76 97 02/18/18 14:30 83 99 02/18/18 14:25 68 99 02/18/18 14:20 76 99 02/18/18 14:15 82 94 02/18/18 14:10 68 95 02/18/18 14:07 78 93 02/18/18 14:05 82 94 02/18/18 14:02 83 144/64 93 02/18/18 14:00 72 95 02/18/18 13:55 70 96 02/18/18 13:50 71 96 02/18/18 13:45 81 93 02/18/18 13:43 80 93 02/18/18 13:40 85 95 02/18/18 13:36 72 94 02/18/18 13:35 76 96 02/18/18 13:30 78 95 02/18/18 13:29 71 94 02/18/18 13:25 77 94 02/18/18 13:24 94 02/18/18 13:20 69 94 02/18/18 13:15 76 94 02/18/18 13:10 69 94 02/18/18 13:05 83 94 02/18/18 13:04 86 94 02/18/18 13:01 79 134/93 02/18/18 13:00 69 94 02/18/18 12:58 82 94 02/18/18 12:55 76 95 02/18/18 12:52 91 H 94 02/18/18 12:50 83 96 02/18/18 12:45 74 95 02/18/18 12:41 77 94 02/18/18 12:40 80 95 02/18/18 12:35 78 94 02/18/18 12:33 97.8 F 72 16 112/63 02/18/18 12:30 75 94 02/18/18 12:29 76 94 02/18/18 12:25 83 95 02/18/18 12:21 79 94 02/18/18 12:20 93 H 95 02/18/18 12:16 80 94 02/18/18 12:15 82 94 02/18/18 12:11 83 122/72 02/18/18 12:10 95 H 94 02/18/18 12:09 104 H 94 02/18/18 12:05 84 94 02/18/18 12:00 88 94 02/18/18 11:55 93 H 92 /18/18 11:53 86 93 02/18/18 11:50 90 89 02/18/18 11:45 98 H 93 02/18/18 11:43 92 /18/18 11:40 97 H 92 /18/18 11:36 102 H 94 /18/18 11:35 94 H 94 18/18 11:32 18 /18/18 11:30 105 H 92 02/18/18 11:26 110 H 94 02/18/18 11:25 103 H 91 /18/18 11:20 109 H 93 18/18 11:19 92 18/18 11:15 109 H 94 18/18 11:10 99 H 91 18/18 11:05 100 H 90 18/18 11:00 99 H 90 /18/18 10:55 117 H 94 18/18 10:54 118 H 93 18/18 10:50 98 H 92 /18/18 10:45 94 H 93 /18/18 10:40 103 H 92 /18/18 10:35 99 H 92 /18/18 10:30 101 H 91 /18/18 10:25 98 H 93 /18/18 10:20 100 H 92 /18/18 10:15 105 H 92 /18/18 10:10 102 H 92 /18/18 10:05 83 93 /18/18 10:00 85 93 /18/18 09:55 92 H 92 18/18 09:50 107 H 93 02/18/18 09:48 89 93 /18/18 09:45 99 H 92 02/18/18 09:40 94 H 93 /18/18 09:39 97 H 92 Intake and Output 02/18/18 02/19/18 02/19/18 22:59 06:59 14:59 Intake Total 304.167 240 Output Total 1200 500 Balance -895.833 -533 Intake: IV 304.167 Lactated Ringers 1,000 ml 304.167 @ 125 mls/hr IV DIRECT JAKOB Rx#:[id number] Intake, Free Water 240 Output: Urine 1200 500 Void 1200 500 Other: Total, Output Amount 600 500 # Voids Void 300 Estimated Blood Loss 500 - Exam Abdomen: Present: normal appearance, soft Uterus: Present: normal, firm - Labs Labs: Abnormal lab results 10/22/17 Range/Units 02:08 Ur Total Protein 24 Hr 750.00 H (2-200) Urine Total Protein 25 H (5-11.8) mg/dL
--- NOTE | 2017-10-22 08:43 | Discharge Summary ---
Providers - Providers Date of Admission: 10/18/17 23:54 Date of discharge: 10/23/17 Attending physician: LAURO ARIAS 10/19/17 07:05 Consult to Physician [CONS] Routine Consulting Provider: GARRET ESPINOZA Reason For Exam: labor Place consult to:: NICU Notified:: yes Phone number called:: [phone] Was contact made?: Yes If yes, spoke with:: Ruth Ann Time called:: 07:34 10/19/17 08:56 Consult to Physician [CONS] Routine Consulting Provider: ZACHERY WILDER Reason For Exam: labor Place consult to:: [facility] Notified:: yes Phone number called:: [phone] Was contact made?: Yes If yes, spoke with:: Makeda Shin NP Time called:: 09:00 Comment:: consult cancelled 10/19/17 09:09 Consult to Physician [CONS] Routine Consulting Provider: SALIMA DONAHUE Reason For Exam: labor Place consult to:: [facility] Notified:: yes Phone number called:: [phone] Was contact made?: Yes If yes, spoke with:: Betty Time called:: 09:10 Primary care physician: BRANDEN MENDOZA Hospitalization Reason for admission: labor, rupture of membranes Delivery: Discharge diagnosis: delivery [place] baby: female Hospital course: Patient admitted in labor @ 32 weeks. Received steroids prior to delivery. Had a . uncomplicated Condition at discharge: Good Disposition: DC-01 TO HOME OR SELFCARE - Discharge Diagnoses (1) labor Status: Acute (2) premature rupture of membranes Status: Acute Plan - Discharge Medications Prescriptions: RX: Ferrous Sulfate 325 mg PO BID #30 tablet. HYDROcodone/APAP 5-325 [Reading 5/325] 1 each PO Q6HR PRN #30 tablet PRN Reason: Pain Ibuprofen [Motrin] 600 mg PO Q8H PRN #60 tablet PRN Reason: Pain - Provider Discharge Summary Activity: no sex for 6 weeks, no heavy lifting 4 weeks Diet: routine Instructions: routine Additional instructions: [] Smoking cessation referral if applicable(refer to patient education folder for contact #) [] Refer to [facility]'s [facility] Booklet Call your doctor immediately for: * Fever > 100.5 * Heavy vaginal bleeding ( >1 pad per hour) * Severe persistent headache * Shortness of breath * Reddened, hot, painful area to leg or breast * followup in 4 weeks - Follow up plan
[2017-10-22 09:44] LABS: Hemoglobin 11.4 gm/dl (10.1-14.3)
[2017-10-22] MEDS: PRENATAL VITAMIN PO SCH (10:33)
[2017-10-22] MEDS: COLACE PO SCH ×2 (10:33→23:10)
[2017-10-22] MEDS ORDERED: M-M-R II VACCINE SUB-Q ONE (21:59)
[2017-10-22] MEDS: SENOKOT S PO SCH (23:08)
[2017-10-23] MEDS ORDERED: BOOSTRIX IM ONE (06:00)
[2017-10-23] MEDS: PRENATAL VITAMIN PO SCH (11:10)
[2017-10-23] MEDS: COLACE PO SCH (11:11)
[2017-10-23] MEDS: SENOKOT S PO SCH (11:11)
[2017-10-23 12:37] VITALS: BP 126/76
[2017-10-23] MEDS: MOTRIN PO SCH (12:42)
== END 2017-10-23 13:15 | disposition home or self-care (01) | DRG 774 ==
LOC: TRG 22:04 → LD 23:54 → TRG 23:54 → OB 10-21 23:40
PROVIDERS: ADMIT Obstetrics & Gynecology; ATTEND Obstetrics & Gynecology
PROC: 10E0XZZ Delivery of Products of Conception, External Approach (ICD-10-PCS; principal; 2017-10-21)
PROC: 10907ZC Drainage of Amniotic Fluid, Therapeutic from Products of Conception, Via Natural or Artificial Opening (ICD-10-PCS; 2017-10-21)
PROC: 3E0234Z Introduction of Serum, Toxoid and Vaccine into Muscle, Percutaneous Approach (ICD-10-PCS; 2017-10-22)
DX: O60.14X0 Preterm labor third trimester with preterm delivery third trimester, not applicable or unspecified (principal); O72.1 Other immediate postpartum hemorrhage; O42.913 Preterm premature rupture of membranes, unspecified as to length of time between rupture and onset of labor, third trimester; Z3A.32 32 weeks gestation of pregnancy; Z23 Encounter for immunization; Z88.1 Allergy status to other antibiotic agents; Z79.899 Other long term (current) drug therapy; Z37.0 Single live birth; O75.3 Other infection during labor
CPT/HCPCS: 36415; 76815; 76816; 76819; 80307; 81001; 82565; 83735; 84156; 85007; 85014; 85018; 85025; 86592; 86706; 86762; 86803; 86850; 86900; 86901; 87806; 88307; 99211; G0463; J0290; J0595; J0610; J0690; J0702; J2405; J2590; J3010; J3475; J7030; J7120